=== PATIENT | female | born 1965 | race Caucasian/White ===

== ENCOUNTER 2016-10-25 18:50 | Emergency (ER) | payer MEDICAID ==
[2016-10-25 18:56] VITALS: BP 134/90
--- NOTE | 2016-10-25 19:26 | EDM.PDOC ---
ED HPI RENAL/ - General Chief Complaint: Genitourinary Problem Stated Complaint: UTI symptoms Time Seen by Provider: 10/25/16 19:08 Source of Information: Reports: Patient History Limitations: Reports: No limitations - History of Present Illness INITIAL COMMENTS - FREE TEXT/NARRATIVE: Burning, frequency of urination present for one week. Worsening. Some lower abdominal discomfort. No CVA pain. Denies fevers/chills/nausea/emesis/bowel changes. No hematuria. No UTI since around 2013. No other complaints. Taking old Pyridium at home for burning, not much help. - Related Data Allergies/ADRs: Allergies Allergy/AdvReac Type Severity Reaction Status Date / Time acetaminophen Allergy Dizziness Verified 10/25/16 18:57 [From Darvocet-N] coconut Allergy Cannot Verified 10/25/16 18:57 Remember codeine Allergy Nausea and Verified 10/25/16 18:57 Vomiting hydrocodone bitartrate Allergy Nausea Verified 10/25/16 18:57 [From Vicodin] oxycodone HCl [From Percocet] Allergy Dizziness Verified 10/25/16 18:57 propoxyphene napsylate Allergy Dizziness Verified 10/25/16 18:57 [From Darvocet-N] Sulfa (Sulfonamide Allergy Nausea and Verified 10/25/16 18:57 Antibiotics) Vomiting steriods Allergy Cannot Uncoded 10/25/16 18:57 Remember Home Meds: Home Meds Ibuprofen [Advil] 200 mg PO Q6H PRN 09/12/13 [History] Multivitamin [Multi-Vitamin Daily] 1 each PO DAILY 10/25/16 [History] Nitrofurantoin Monohyd/M-Cryst [Macrobid 100 mg Capsule] 100 mg PO Q12HR #10 capsule 10/25/16 [Rx] Phenazopyridine HCl [Pyridium] 100 mg PO ASDIRECTED PRN #20 tablet 10/25/16 [Rx] Past Medical History Genitourinary History: Reports: UTI, recurrent Social & Family History - Tobacco Use Smoking Status *Q: Current Every Day Smoker Years of Tobacco use: 30 Second Hand Smoke Exposure: Yes - Alcohol Use Days Per Week of Alcohol Use: 1 (Occasionally) - Recreational Drug Use Recreational Drug Use: No - Living Situation & Occupation Living situation: Reports: with significant other (Fianc) 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 ED EXAM, RENAL/ - Physical Exam Exam: See Below Exam Limited By: No limitations General Appearance: alert, WD/WN, no apparent distress Eye Exam: bilateral eye: EOMI, PERRL Head: atraumatic, normocephalic Neck: supple Respiratory/Chest: no respiratory distress GI/Abdominal: soft, no distention, tender (mild suprapubic tenderness with palpation). No: guarding, rigid, rebound Back Exam: No: CVA tenderness (L), CVA tenderness (R) Neurological: alert, oriented, normal cognition, normal gait Psychiatric: normal affect, normal mood Skin Exam: Warm, Dry, Intact, Normal color Course - Vital Signs Last Recorded V/S: Last Vital Signs Temp 36.6 C 10/25/16 18:53 Pulse 84 10/25/16 18:53 Resp 16 10/25/16 18:53 BP 134/90 10/25/16 18:53 Pulse Ox 100 10/25/16 18:53 - Orders/Labs/Meds Orders: Active Orders 24 hr Category Date Time Status CULTURE URINE [RM] Routine Lab 10/25/16 19:19 Uncollected CULTURE URINE [RM] Stat Lab 10/25/16 19:00 Received Labs: Laboratory Tests 10/25/16 Range/Units 19:00 Specimen Type Urincc Urine Color Yellow Urine Appearance Slightly cloudy Urine pH 6.0 (5.0-9.0) Ur Specific [place] <= 1.005 (1.005-1.030) Urine Protein Negative (NEGATIVE) mg/dL Urine Glucose (UA) 100 H (NEGATIVE) mg/dL Urine Ketones Negative (NEGATIVE) mg/dL Urine Occult Blood Moderate H (NEGATIVE) Urine Nitrite Negative (NEGATIVE) Urine Bilirubin Negative (NEGATIVE) Urine Urobilinogen 0.2 (0.2-1.0) E.U./dL Ur Leukocyte Esterase Moderate H (NEGATIVE) Urine RBC 0-5 /HPF Urine WBC >100 H /HPF Ur Epithelial Cells Few /LPF Urine Bacteria Moderate H (NONE TO FEW) /HPF - Re-Assessments/Exams Free Text/Narrative Re-Assessment/Exam: 10/25/16 19:28 +ua for UTI Rx with Macrobid. Sent home with Pyridium. Given dose of Macrobid prior to discharge. Departure - Departure Time of Disposition: 19:20 Disposition: Home, Self-Care 01 Condition: good Clinical Impression: UTI, Urinary tract infectious disease Prescriptions: Phenazopyridine HCl [Pyridium] 100 mg PO ASDIRECTED PRN #20 tablet PRN Reason: Dysuria Instructions: Urinary Tract Infection, Adult, [id number] Forms: ED Department Discharge Additional Instructions: Follow up as needed if symptoms do not improve within 1-2 days. Recommend follow up urine check next Sunday to make certain that infections has completely resolved. - My Orders Last 24 Hours: My Active Orders 10/25/16 19:00 CULTURE URINE [RM] Stat 10/25/16 19:19 CULTURE URINE [RM] Routine - Assessment/Plan Last 24 Hours: My Active Orders 10/25/16 19:00 CULTURE URINE [RM] Stat 10/25/16 19:19 CULTURE URINE [RM] Routine
[2016-10-25] MEDS ORDERED: Nitrofurantoin Monohydrate/Macrocrystalline 100 MG Cap PO ONE (19:29)
== END 2016-10-25 19:43 | disposition home or self-care (01) ==
LOC: LL.ED 18:50
DX: N39.0 Urinary tract infection, site not specified (principal); Z88.5 Allergy status to narcotic agent; Z88.2 Allergy status to sulfonamides; Z79.899 Other long term (current) drug therapy
CPT/HCPCS: 81001; 87086; 87088; 99283; A9270; 87186

== ENCOUNTER 2018-01-10 01:35 | Emergency (ER) | payer BC, MEDICAID ==
[2018-01-10 01:57] VITALS: BP 157/56
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
[2018-01-10] MEDS ORDERED: Nitrofurantoin Monohydrate/Macrocrystalline 100 MG Cap PO ONE (02:26)
== END 2018-01-10 02:55 | disposition home or self-care (01) ==
LOC: LL.ED 01:35
DX: N39.0 Urinary tract infection, site not specified (principal); K29.70 Gastritis, unspecified, without bleeding; F41.8 Other specified anxiety disorders; J43.1 Panlobular emphysema; F17.210 Nicotine dependence, cigarettes, uncomplicated; Z79.899 Other long term (current) drug therapy; Z88.8 Allergy status to other drugs, medicaments and biological substances; Z88.5 Allergy status to narcotic agent; Z71.6 Tobacco abuse counseling
CPT/HCPCS: 81001; 87086; 87088; 87186; 99283; A9270-GY

== ENCOUNTER 2019-10-13 20:38 | Emergency (ER) | payer BC ==
[2019-10-13 20:57] VITALS: BP 174/90; PULSE 86
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
== END 2019-10-13 21:40 | disposition home or self-care (01) ==
LOC: LL.ED 20:38
DX: N39.0 Urinary tract infection, site not specified (principal); Z91.018 Allergy to other foods; Z88.5 Allergy status to narcotic agent; Z88.8 Allergy status to other drugs, medicaments and biological substances; Z88.2 Allergy status to sulfonamides; J44.9 Chronic obstructive pulmonary disease, unspecified; M41.9 Scoliosis, unspecified
CPT/HCPCS: 81001; 87086; 87088; 87186; 99283

== ENCOUNTER 2019-12-16 00:50 | Emergency (ER) | payer BC ==
[2019-12-16] MEDS ORDERED: Heparin Sodium/0.45% NaCl 500 ML IV ONE (00:51)
[2019-12-16] MEDS ORDERED: Sodium Chloride 0.9% 10 ML Syringe FLUSH PRN (01:04)
[2019-12-16] MEDS ORDERED: Aspirin 81 MG Tab.Chew PO ONE ×2 (01:12)
[2019-12-16 01:40] LABS: PTT,PARTIAL THROMBOPLSTIN TIME 25.1 SEC (24.5-32.8)
[2019-12-16 01:41] LABS: CHLORIDE,CL 107 mmol/L (98-107); SODIUM,NA 143 mmol/L (136-145)
[2019-12-16] MEDS ORDERED: Ticagrelor 90 MG Tab PO ONE (01:58)
[2019-12-16 02:05] VITALS: BP 127/95; PULSE 79
[2019-12-16] MEDS ORDERED: Nicotine 21 MG/24 Hr Patch TRDERM ONE (02:07)
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
[2019-12-16] MEDS ORDERED: Heparin Sodium 5,000 Units/ML Vial ONE ×2 (02:11→02:15)
[2019-12-16] MEDS ORDERED: Heparin Sodium/0.45% NaCl 500 ML ONE (02:11)
[2019-12-16] MEDS ORDERED: Heparin Sodium/0.45% NaCl 500 ML IV SCH ×2 (02:15)
== END 2019-12-16 02:22 ==
LOC: LL.ED 00:50
DX: R07.9 Chest pain, unspecified (principal); R79.89 Other specified abnormal findings of blood chemistry; R79.1 Abnormal coagulation profile; F17.210 Nicotine dependence, cigarettes, uncomplicated; Z88.6 Allergy status to analgesic agent; Z88.5 Allergy status to narcotic agent; Z88.8 Allergy status to other drugs, medicaments and biological substances; Z88.2 Allergy status to sulfonamides; Z91.018 Allergy to other foods
CPT/HCPCS: 36415; 71046; 80053; 81001; 82550; 82553; 83605; 83735; 83880; 84443; 84484; 85025; 85379; 85610; 85730; 87086; 93005; 99285-25; A9270-GY; J1644

== ENCOUNTER 2020-01-28 02:28 | Observation (INO) | payer BC ==
[2020-01-28] MEDS ORDERED: Nitroglycerin 0.4 MG Tab.SL SL ONE (02:58)
[2020-01-28 03:05] LABS: PTT,PARTIAL THROMBOPLSTIN TIME 26.3 SEC (24.5-32.8)
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
[2020-01-28 03:17] LABS: CHLORIDE,CL 108 mmol/L (98-107); SODIUM,NA 141 mmol/L (136-145)
[2020-01-28] MEDS ORDERED: Ondansetron 4 MG/2 ML SDV IVPUSH PRN (04:05)
[2020-01-28] MEDS ORDERED: Nitroglycerin 0.4 MG Tab.SL SL PRN (04:08)
[2020-01-28] MEDS ORDERED: Acetaminophen 500 MG Tab PO PRN (04:11)
[2020-01-28] MEDS: Nicotine 21 MG/24 Hr Patch TRDERM SCH ×2 (04:35→09:06)
[2020-01-28] MEDS ORDERED: Pantoprazole 40 MG Vial IVPUSH ONE (09:00)
[2020-01-28] MEDS: Carvedilol 6.25 MG Tab PO SCH ×2 (09:04→17:50)
[2020-01-28] MEDS: Lisinopril 5 MG Tab PO SCH (09:05)
[2020-01-28] MEDS: Apixaban 5 MG Tab PO SCH ×2 (09:05→17:52)
[2020-01-28] MEDS: Sodium Chloride 0.9% 10 ML Syringe FLUSH PRN (09:12)
[2020-01-28] MEDS: atorvaSTATin 40 MG Tab PO SCH (09:44)
[2020-01-28] MEDS ORDERED: atorvaSTATin 40 MG Tab PO SCH (20:00)
[2020-01-29] MEDS: Carvedilol 6.25 MG Tab PO SCH (07:34)
[2020-01-29] MEDS: Lisinopril 5 MG Tab PO SCH (07:34)
[2020-01-29] MEDS: Sodium Chloride 0.9% 10 ML Syringe FLUSH PRN (07:35)
[2020-01-29] MEDS: atorvaSTATin 40 MG Tab PO SCH (07:35)
[2020-01-29] MEDS: Nicotine 21 MG/24 Hr Patch TRDERM SCH (07:35)
[2020-01-29] MEDS: Apixaban 5 MG Tab PO SCH (07:35)
[2020-01-29 07:36] VITALS: BP 138/94; PULSE 62
[2020-01-29 07:47] LABS: CHLORIDE,CL 107 mmol/L (98-107); SODIUM,NA 142 mmol/L (136-145)
--- NOTE | 2020-01-29 09:28 | PCM.DCSUM1 ---
Discharge Summary - Hospital Course HPI Initial Comments: See emergency room note/admission H&P Brief History: See emergency room note/admission H&P Diagnosis: Stroke: No Modified Dixie Scale: No Symptoms at All Modified Dixie Scale Score: 0 - Discharge Data Discharge Date: 01/29/20 Discharge Disposition: Home, Self-Care 01 Condition: Good - Referral to Home Health Primary Care Physician: Marce Sanchez PA-C - Discharge Diagnosis/Problem(s) (1) Chest pain SNOMED Code(s): 70779197 ICD Code: R07.9 - CHEST PAIN, UNSPECIFIED Status: Acute Priority: High Current Visit: Yes Onset Date: 01/28/20 Problem Details: Negative workup for acute ND. Note that [facility] EMR was reviewed by me today concerning recent possible ND on 12/16/19 with negative workup in that facility. Heart catheterization on 12/16/19 was completely normal with exception of decreased ejection fraction of 30% with echocardiogram on 12/16/19 indicating normal findings with exception of moderate apical ballooning consistent with Takatsubo syndrome with small localized apical thrombus with ejection fraction of 45% by that evaluation. Patient was placed on Eliquis at that time secondary to the thrombus and her above cardiomyopathy with follow-up appointment already scheduled with her associate veterinarian on 02/16/20 per their records. Note her previous d-dimer elevation secondary to the above small thrombus has since normalized with previous negative CTA of the chest for PE and negative venous Doppler studies of the lower extremities for DVT, which were both conducted at on 12/16/19. [place] work excuse was provided with the patient feeling that she can perform her normal duties. Qualifiers: Chest pain type: unspecified Qualified Code(s): R07.9 - Chest pain, unspecified (2) Cardiomyopathy SNOMED Code(s): 08716365 ICD Code: I42.9 - CARDIOMYOPATHY, UNSPECIFIED Status: Chronic Priority: High Current Visit: Yes Onset Date: 12/16/19 Problem Details: As above Qualifiers: Cardiomyopathy type: other Qualified Code(s): I42.8 - Other cardiomyopathies (3) Peptic reflux disease SNOMED Code(s): 747070958 ICD Code: K21.9 - GASTRO-ESOPHAGEAL REFLUX DISEASE WITHOUT ESOPHAGITIS Status: Chronic Priority: Medium Current Visit: Yes Problem Details: Her current symptoms may be related to her peptic ulcer disease, although this has improved since recent initiation of Prilosec by her history. Further GI workup depending on her clinical course, including possible EGD, additional screening colonoscopy, if this has not already been conducted, etc. (4) Hypertension SNOMED Code(s): 25544954 ICD Code: I10 - ESSENTIAL (PRIMARY) HYPERTENSION Status: Chronic Priority: Medium Current Visit: Yes Problem Details: Elevated diastolic blood pressures during this hospitalization. Continue to observe closely by her regular providers. No medication changes for now. Qualifiers: Hypertension type: essential hypertension Qualified Code(s): I10 - Essential (primary) hypertension (5) COPD (chronic obstructive pulmonary disease) SNOMED Code(s): 04260295 ICD Code: J44.9 - CHRONIC OBSTRUCTIVE PULMONARY DISEASE, UNSPECIFIED Status: Chronic Priority: Medium Current Visit: Yes Problem Details: COPD by previous chest x-ray. No current fever or bronchitic type symptoms. No current medical therapy. Tobacco cessation strongly encouraged as below. PFTs also recommended. Qualifiers: COPD type: emphysema Emphysema type: panlobular Qualified Code(s): J43.1 - Panlobular emphysema (6) Hyperlipidemia SNOMED Code(s): 85394561 ICD Code: E78.5 - HYPERLIPIDEMIA, UNSPECIFIED Status: Chronic Priority: Medium Current Visit: Yes Problem Details: Currently under therapy. Weight loss in moderation. Continue to observe closely by her regular providers. Qualifiers: Hyperlipidemia type: unspecified Qualified Code(s): E78.5 - Hyperlipidemia, unspecified (7) Mixed anxiety depressive disorder SNOMED Code(s): 645410235 ICD Code: F41.8 - OTHER SPECIFIED ANXIETY DISORDERS Status: Chronic Priority: Medium Current Visit: Yes Problem Details: Stable by history. (8) Tobacco abuse counseling SNOMED Code(s): 427053996, 790527379, 302621154 ICD Code: Z71.6 - TOBACCO ABUSE COUNSELING Status: Chronic Priority: Medium Current Visit: No Problem Details: Patient actively trying to cut down cigarette use since [facility] admission 12/16/19. Nicoderm patch use during this hospitalization. The patient was congratulated about trying to quit smoking with tobacco cessation information provided. (9) D-dimer, elevated SNOMED Code(s): 246533663 ICD Code: R79.89 - OTHER SPECIFIED ABNORMAL FINDINGS OF BLOOD CHEMISTRY Status: Acute Priority: Medium Current Visit: Yes Onset Date: 12/16/19 Problem Details: As above. D-dimer normal during this hospitalization. Continue current Eliquis therapy. - Patient Summary/Data Operative Procedure(s) Performed: None Complications: None Consults: None Labs Pending at D/C: None Recommended Follow-up Testing/Procedures: As per discharge instructions Planned Operative Procedure(s) after DC: None Hospital Course: The patient was placed in observation status with negative workup for acute ND as above. Note previous extensive cardiac workup at [facility] on 12/16/19 as above with these records reviewed by me today. Patient is completely symptom-free at time of discharge and during this hospitalization with continued close follow-up with the cardiology department at [facility] with no further medication. - Patient Instructions Diet: Heart Healthy Diet Activity: As Tolerated Driving: May Drive Today Showering/Bathing: May Shower Notify Provider of: Fever, Increased Pain, Nausea and/or Vomiting Other/Special Instructions: 1. Follow up with your regular provider in 10-14 days as needed, if symptoms persist. Bring these discharge instructions with you to that visit.. 2. Otherwise follow-up with your associate veterinarian as already scheduled on 02/16/20, including repeat echocardiogram, etc. 3. Work excuse- See Form. 4. Congratulations about trying to quit smoking. Stop all tobacco use LAURIE as directed/per provided information and consider contacting [employer], etc.. 5. Immediately after this visit verify that your cellular telephone's voicemail has been activated and is empty. Also verify that your home telephone's answering machine is operating properly and has space to receive messages. Note that it is sometimes necessary for us to be able to contact you at a later date to discuss your medical care. 6. Please remember that we are ALWAYS here for you and want to answer any questions you may have. Feel free to call the hospital any time and we call you back LAURIE. 7. Some evidence of beginning emphysema/COPD by chest x-ray. Stop smoking LAURIE as above. Consider lung function test by your regular provider. 8. Your lower blood pressure number was somewhat elevated, i.e., diastolic blood pressure. Continue current medical therapy for now with close follow-up by your regular provider, associate veterinarian, etc. SYMPTOMS TO LOOK OUT FOR: You have been hospitalized for your heart disease and should look out for the following symptoms after discharge: 1. Make absolutely certain that you completely understand the reasons you are taking any of your new and/or old medications and/or supplements as discussed with you by the nurse at time of discharge. This includes possible side effects versus interactions between your medications and/or supplements. Don't be afraid to take extra time to ask any questions or express any concerns, because that is what we are here for. It is very important to us that you und erstand your care. 2. Notify this facility, telephone number [phone], and/or your regular provider LAURIE if you experience any of the following symptoms: a. Sudden chest pressure or pain especially with radiation to the neck, jaws, arms, mid back, etc. especially if these are associated with nausea, cold sweats, dizziness, racing heart, weakness, near fainting, etc. b. Any shortness of breath or decreased exercise tolerance that has changed since your hospital discharge and is not normal for you. c. Any persistent heartburn type symptoms that is not normal for you and is not relieved by any of your discharge medications or supplements. d. Any progressive weight gain especially more than 5 pounds of weight gain prior to your scheduled appointment with your regular provider. e. Any racing heart, dizziness, etc. not associated with the other symptoms as above. f. Any persistent fever equal to or greater than 100.5 degrees, which does not respond to recommended doses of Tylenol, ibuprofen, Aleve, or other previously prescribed fever medications - Discharge Plan *PRESCRIPTION DRUG MONITORING PROGRAM REVIEWED*: Not Applicable *COPY OF PRESCRIPTION DRUG MONITORING REPORT IN PATIENT KATIANA: Not Applicable Home Medications: Home Meds Multivitamin [Multi-Vitamin Daily] 1 each PO DAILY 10/25/16 [History] Acetaminophen [Non-Aspirin Extra Strength] 1,000 mg PO Q6H PRN 01/10/18 [History] Apixaban [Eliquis] 5 mg PO BID 01/28/20 [History] Omeprazole Magnesium [Prilosec Otc] 20 mg PO DAILY 01/28/20 [History] atorvaSTATin [Lipitor] 40 mg PO BEDTIME 01/28/20 [History] carvediloL [Carvedilol] 3.125 mg PO BID 01/28/20 [History] lisinopriL [Lisinopril] 2.5 mg PO DAILY 01/28/20 [History] Oxygen Therapy Mode: Room Air Patient Handouts: Health Risks of Smoking, Steps to Quit Smoking, [id number], Chronic Obstructive Pulmonary Disease, [id number], Cardiomyopathy, Adult, Hypertension, Adult, [id number], Gastroesophageal Reflux Disease, Adult, [id number] Forms: ED Department Discharge Referrals: Marce Sanchez PA-C [Primary Care Provider] - - Discharge Summary/Plan Comment DC Time >30 min.: Yes (Coordination of care ) Discharge Summary/Plan Comment: As above. Extensive precautions were given to the patient, who is in agreement with the treatment plan. See Patient Instructions for further treatment and plan. - General Info Date of Service: 01/29/20 Admission Dx/Problem (Free Text: Chest pain Functional Status: Reports: Pain Controlled, Tolerating Diet, Ambulating. Denies: New Symptoms, Incentive Spirometry Numeric/FACES Score: 0 - Review of Systems General: Reports: No Symptoms. Denies: Fever, Weakness, Fatigue, Malaise, Chills, Night Sweats, Appetite HEENT: Reports: No Symptoms. Denies: Dysphasia, Ear Pain, Eye Pain, Headaches, Post Nasal Drip, Sinus Congestion, Sore Throat, Visual Changes Pulmonary: Reports: No Symptoms. Denies: Shortness of Breath, Pleuritic Chest Pain, Cough, Sputum, Hemoptysis, Wheezing Cardiovascular: Reports: Edema (Stable dependent). Denies: Chest Pain, Palpitations, Dyspnea on Exertion, Orthopnea, PND, Lightheadedness Gastrointestinal: Reports: Constipation (Stable by history), Other (No bowel movement since this hospitalization). Denies: Abdominal Pain, Decreased Appetite, Diarrhea, Difficulty Swallowing, Flatus, Hematochezia, Melena, Nausea, Vomiting Genitourinary: Reports: No Symptoms. Denies: Dysuria, Frequency, Burning, Pain, Urgency, Incontinence, Hematuria, Retention, Flank Pain, Other Musculoskeletal: Reports: No Symptoms. Denies: Neck Pain, Shoulder Pain, Arm Pain, Back Pain, Leg Pain Skin: Reports: No Symptoms. Denies: Diaphoresis, Bruising, Pruritis Neurological: Reports: No Symptoms. Denies: Confusion, Dizziness, Headache, Numbness, Paresthesia, Tingling, Weakness Psychiatric: Reports: No Symptoms. Denies: Confusion, Depression, Anxiety, Agitation, Cravings, Hallucinations - Patient Data Vitals - Most Recent: Last Vital Signs Temp 37.0 C 01/29/20 07:30 Pulse 62 01/29/20 07:34 Resp 16 01/29/20 07:30 BP 138/94 H 01/29/20 07:34 Pulse Ox 95 01/29/20 07:30 Vital Signs - 24 hr 01/28/20 01/28/20 01/29/20 17:50 17:53 00:00 Temperature [ 36.6 C 37.1 C Temporal] Pulse, 70 Peripheral Pulse, 70 64 Peripheral [ Pulse Oximetry] Respiratory 16 16 Rate Blood Pressure 120/73 Blood Pressure 120/73 [Left Upper Arm ] Blood Pressure 115/74 [Right Upper Arm] O2 Sat by Pulse 94 L 95 Oximetry 01/29/20 01/29/20 01/29/20 06:00 07:30 07:34 Temperature [ 36.8 C 37.0 C Temporal] Pulse, 62 Peripheral Pulse, 64 62 Peripheral [ Pulse Oximetry] Respiratory 16 16 Rate Blood Pressure 138/94 H Blood Pressure 138/94 H [Left Upper Arm ] Blood Pressure 131/80 [Right Upper Arm] O2 Sat by Pulse 95 95 Oximetry Weight - Most Recent: 86.364 kg I&O - Last 24 hours: Intake & Output 01/28/20 01/29/20 01/29/20 22:59 06:59 14:59 Intake Total 120 300 600 Balance 120 300 600 Imaging Impressions - Last 24 hrs: gambling monitor showed normal sinus rhythm with heart rate in the 60s to 70s with no ectopy or arrhythmia Lab Results - Last 24 hrs: Laboratory Results - last 24 hr 01/28/20 01/28/20 01/29/20 Range/Units 09:05 16:35 07:15 WBC (4.0-10.2) K/uL RBC (3.77-5.09) M/uL Hgb (11.7-15.5) g/dL Hct (34.0-46.0) % MCV (84.0-98.0) fL MCH (28.2-33.3) pg MCHC (31.7-36.0) g/dL RDW (11.2-14.1) % Plt Count (150-350) K/uL Neut % (Auto) (45.0-80.0) % Lymph % (Auto) (10.0-50.0) % [place] % (Auto) (2.0-14.0) % Eos % (Auto) (0.0-5.0) % Baso % (Auto) (0.0-2.0) % Neut # (Auto) (1.40-7.00) K/uL Lymph # (Auto) (0.50-3.50) K/uL [place] # (Auto) (0.00-1.00) K/uL Eos # (Auto) (0.00-0.50) K/uL Baso # (Auto) (0.00-0.20) K/uL Sodium 142 (136-145) mmol/L Potassium 3.9 (3.5-5.1) mmol/L Chloride 107 (98-107) mmol/L Carbon Dioxide 28.2 (21.0-32.0) mmol/L BUN 21 H (7-18) mg/dL Creatinine 0.71 (0.51-1.17) mg/dL Est Cr Clr Drug Dosing 87.56 mL/min Estimated GFR (MDRD) > 60 mL/min Glucose 87 (74-106) mg/dL Calcium 8.8 (8.5-10.1) mg/dL Creatine Kinase (26-308) U/L Creatine Kinase Index (0.0-2.5) % CK-MB (CK-2) (0.00-3.60) ng/mL Troponin I 0.000 0.000 0.000 (0.000-0.056) ng/mL 01/29/20 01/29/20 Range/Units 07:15 07:15 WBC 4.8 (4.0-10.2) K/uL RBC 4.22 (3.77-5.09) M/uL Hgb 13.0 (11.7-15.5) g/dL Hct 39.4 (34.0-46.0) % MCV 93.4 (84.0-98.0) fL MCH 30.8 (28.2-33.3) pg MCHC 33.0 (31.7-36.0) g/dL RDW 13.0 (11.2-14.1) % Plt Count 181 (150-350) K/uL Neut % (Auto) 55.7 (45.0-80.0) % Lymph % (Auto) 30.9 (10.0-50.0) % [place] % (Auto) 10.7 (2.0-14.0) % Eos % (Auto) 2.5 (0.0-5.0) % Baso % (Auto) 0.2 (0.0-2.0) % Neut # (Auto) 2.64 (1.40-7.00) K/uL Lymph # (Auto) 1.47 (0.50-3.50) K/uL [place] # (Auto) 0.51 (0.00-1.00) K/uL Eos # (Auto) 0.12 (0.00-0.50) K/uL Baso # (Auto) 0.01 (0.00-0.20) K/uL Sodium (136-145) mmol/L Potassium (3.5-5.1) mmol/L Chloride (98-107) mmol/L Carbon Dioxide (21.0-32.0) mmol/L BUN (7-18) mg/dL Creatinine (0.51-1.17) mg/dL Est Cr Clr Drug Dosing mL/min Estimated GFR (MDRD) mL/min Glucose (74-106) mg/dL Calcium (8.5-10.1) mg/dL Creatine Kinase 51 (26-308) U/L Creatine Kinase Index 1.8 (0.0-2.5) % CK-MB (CK-2) 0.90 (0.00-3.60) ng/mL Troponin I (0.000-0.056) ng/mL Laboratory Tests 01/28/20 01/28/20 01/28/20 Range/Units 02:45 02:45 02:45 WBC 5.9 (4.0-10.2) K/uL RBC 4.03 (3.77-5.09) M/uL Hgb 12.3 (11.7-15.5) g/dL Hct 37.3 (34.0-46.0) % MCV 92.6 (84.0-98.0) fL MCH 30.5 (28.2-33.3) pg MCHC 33.0 (31.7-36.0) g/dL RDW 12.9 (11.2-14.1) % Plt Count 160 (150-350) K/uL Neut % (Auto) 64.0 (45.0-80.0) % Lymph % (Auto) 24.3 (10.0-50.0) % [place] % (Auto) 8.9 (2.0-14.0) % Eos % (Auto) 2.6 (0.0-5.0) % Baso % (Auto) 0.2 (0.0-2.0) % Neut # (Auto) 3.75 (1.40-7.00) K/uL Lymph # (Auto) 1.42 (0.50-3.50) K/uL [place] # (Auto) 0.52 (0.00-1.00) K/uL Eos # (Auto) 0.15 (0.00-0.50) K/uL Baso # (Auto) 0.01 (0.00-0.20) K/uL PT 10.6 (9.5-12.0) SEC INR 1.1 APTT 26.3 (24.5-32.8) SEC D-Dimer, Quantitative (0-400) ng/mL Sodium 141 (136-145) mmol/L Potassium 3.6 (3.5-5.1) mmol/L Chloride 108 H (98-107) mmol/L Carbon Dioxide 26.2 (21.0-32.0) mmol/L BUN 30 H (7-18) mg/dL Creatinine 0.71 (0.51-1.17) mg/dL Est Cr Clr Drug Dosing 87.45 mL/min Estimated GFR (MDRD) > 60 mL/min Glucose 121 H (74-106) mg/dL Lactic Acid (0.4-2.0) mmol/L Calcium 8.6 (8.5-10.1) mg/dL Magnesium 1.9 (1.8-2.4) mg/dL Total Bilirubin 0.3 (0.2-1.0) mg/dL AST 16 (15-37) U/L ALT 25 (12-78) U/L Alkaline Phosphatase 93 (46-116) IU/L Creatine Kinase 100 (26-308) U/L Creatine Kinase Index 1.8 (0.0-2.5) % CK-MB (CK-2) 1.80 (0.00-3.60) ng/mL Troponin I 0.000 (0.000-0.056) ng/mL NT-Pro-B Natriuret Pep 123 (0-125) pg/mL Total Protein 6.5 (6.4-8.2) g/dL Albumin 3.6 (3.4-5.0) g/dL TSH, Ultra Sensitive 1.033 (0.358-3.740) mIU/mL 01/28/20 01/28/20 01/28/20 Range/Units 02:45 02:45 09:05 WBC (4.0-10.2) K/uL RBC (3.77-5.09) M/uL Hgb (11.7-15.5) g/dL Hct (34.0-46.0) % MCV (84.0-98.0) fL MCH (28.2-33.3) pg MCHC (31.7-36.0) g/dL RDW (11.2-14.1) % Plt Count (150-350) K/uL Neut % (Auto) (45.0-80.0) % Lymph % (Auto) (10.0-50.0) % [place] % (Auto) (2.0-14.0) % Eos % (Auto) (0.0-5.0) % Baso % (Auto) (0.0-2.0) % Neut # (Auto) (1.40-7.00) K/uL Lymph # (Auto) (0.50-3.50) K/uL [place] # (Auto) (0.00-1.00) K/uL Eos # (Auto) (0.00-0.50) K/uL Baso # (Auto) (0.00-0.20) K/uL PT (9.5-12.0) SEC INR APTT (24.5-32.8) SEC D-Dimer, Quantitative < 100 (0-400) ng/mL Sodium (136-145) mmol/L Potassium (3.5-5.1) mmol/L Chloride (98-107) mmol/L Carbon Dioxide (21.0-32.0) mmol/L BUN (7-18) mg/dL Creatinine (0.51-1.17) mg/dL Est Cr Clr Drug Dosing mL/min Estimated GFR (MDRD) mL/min Glucose (74-106) mg/dL Lactic Acid 1.5 (0.4-2.0) mmol/L Calcium (8.5-10.1) mg/dL Magnesium (1.8-2.4) mg/dL Total Bilirubin (0.2-1.0) mg/dL AST (15-37) U/L ALT (12-78) U/L Alkaline Phosphatase (46-116) IU/L Creatine Kinase (26-308) U/L Creatine Kinase Index (0.0-2.5) % CK-MB (CK-2) (0.00-3.60) ng/mL Troponin I 0.000 (0.000-0.056) ng/mL NT-Pro-B Natriuret Pep (0-125) pg/mL Total Protein (6.4-8.2) g/dL Albumin (3.4-5.0) g/dL TSH, Ultra Sensitive (0.358-3.740) mIU/mL 01/28/20 01/29/20 01/29/20 Range/Units 16:35 07:15 07:15 WBC 4.8 (4.0-10.2) K/uL RBC 4.22 (3.77-5.09) M/uL Hgb 13.0 (11.7-15.5) g/dL Hct 39.4 (34.0-46.0) % MCV 93.4 (84.0-98.0) fL MCH 30.8 (28.2-33.3) pg MCHC 33.0 (31.7-36.0) g/dL RDW 13.0 (11.2-14.1) % Plt Count 181 (150-350) K/uL Neut % (Auto) 55.7 (45.0-80.0) % Lymph % (Auto) 30.9 (10.0-50.0) % [place] % (Auto) 10.7 (2.0-14.0) % Eos % (Auto) 2.5 (0.0-5.0) % Baso % (Auto) 0.2 (0.0-2.0) % Neut # (Auto) 2.64 (1.40-7.00) K/uL Lymph # (Auto) 1.47 (0.50-3.50) K/uL [place] # (Auto) 0.51 (0.00-1.00) K/uL Eos # (Auto) 0.12 (0.00-0.50) K/uL Baso # (Auto) 0.01 (0.00-0.20) K/uL PT (9.5-12.0) SEC INR APTT (24.5-32.8) SEC D-Dimer, Quantitative (0-400) ng/mL Sodium 142 (136-145) mmol/L Potassium 3.9 (3.5-5.1) mmol/L Chloride 107 (98-107) mmol/L Carbon Dioxide 28.2 (21.0-32.0) mmol/L BUN 21 H (7-18) mg/dL Creatinine 0.71 (0.51-1.17) mg/dL Est Cr Clr Drug Dosing 87.56 mL/min Estimated GFR (MDRD) > 60 mL/min Glucose 87 (74-106) mg/dL Lactic Acid (0.4-2.0) mmol/L Calcium 8.8 (8.5-10.1) mg/dL Magnesium (1.8-2.4) mg/dL Total Bilirubin (0.2-1.0) mg/dL AST (15-37) U/L ALT (12-78) U/L Alkaline Phosphatase (46-116) IU/L Creatine Kinase (26-308) U/L Creatine Kinase Index (0.0-2.5) % CK-MB (CK-2) (0.00-3.60) ng/mL Troponin I 0.000 0.000 (0.000-0.056) ng/mL NT-Pro-B Natriuret Pep (0-125) pg/mL Total Protein (6.4-8.2) g/dL Albumin (3.4-5.0) g/dL TSH, Ultra Sensitive (0.358-3.740) mIU/mL 01/29/20 Range/Units 07:15 WBC (4.0-10.2) K/uL RBC (3.77-5.09) M/uL Hgb (11.7-15.5) g/dL Hct (34.0-46.0) % MCV (84.0-98.0) fL MCH (28.2-33.3) pg MCHC (31.7-36.0) g/dL RDW (11.2-14.1) % Plt Count (150-350) K/uL Neut % (Auto) (45.0-80.0) % Lymph % (Auto) (10.0-50.0) % [place] % (Auto) (2.0-14.0) % Eos % (Auto) (0.0-5.0) % Baso % (Auto) (0.0-2.0) % Neut # (Auto) (1.40-7.00) K/uL Lymph # (Auto) (0.50-3.50) K/uL [place] # (Auto) (0.00-1.00) K/uL Eos # (Auto) (0.00-0.50) K/uL Baso # (Auto) (0.00-0.20) K/uL PT (9.5-12.0) SEC INR APTT (24.5-32.8) SEC D-Dimer, Quantitative (0-400) ng/mL Sodium (136-145) mmol/L Potassium (3.5-5.1) mmol/L Chloride (98-107) mmol/L Carbon Dioxide (21.0-32.0) mmol/L BUN (7-18) mg/dL Creatinine (0.51-1.17) mg/dL Est Cr Clr Drug Dosing mL/min Estimated GFR (MDRD) mL/min Glucose (74-106) mg/dL Lactic Acid (0.4-2.0) mmol/L Calcium (8.5-10.1) mg/dL Magnesium (1.8-2.4) mg/dL Total Bilirubin (0.2-1.0) mg/dL AST (15-37) U/L ALT (12-78) U/L Alkaline Phosphatase (46-116) IU/L Creatine Kinase 51 (26-308) U/L Creatine Kinase Index 1.8 (0.0-2.5) % CK-MB (CK-2) 0.90 (0.00-3.60) ng/mL Troponin I (0.000-0.056) ng/mL NT-Pro-B Natriuret Pep (0-125) pg/mL Total Protein (6.4-8.2) g/dL Albumin (3.4-5.0) g/dL TSH, Ultra Sensitive (0.358-3.740) mIU/mL UVALDO Results - Last 24 hrs: None Med Orders - Current: Current Medications Acetaminophen (Tylenol Extra Strength) 1,000 mg PO Q6H PRN PRN Reason: Pain Apixaban (Eliquis) 5 mg PO BID [facility] Last Admin: 01/29/20 07:35 Dose: 5 mg Documented by: Atorvastatin Calcium (Lipitor) 40 mg PO DAILY [facility] Last Admin: 01/29/20 07:35 Dose: 40 mg Documented by: Carvedilol (Coreg) 3.125 mg PO BID [facility] Last Admin: 01/29/20 07:34 Dose: 3.125 mg Documented by: Lisinopril (Prinivil) 2.5 mg PO DAILY [facility] Last Admin: 01/29/20 07:34 Dose: 2.5 mg Documented by: Nicotine (Habitrol) 21 mg TRDERM DAILY [facility] Last Admin: 01/29/20 07:35 Dose: Not Given Documented by: Nitroglycerin (Nitrostat) 0.4 mg SL Q5M PRN PRN Reason: Chest Pain Ondansetron HCl (Zofran) 4 mg IVPUSH Q6H PRN PRN Reason: Nausea/Vomiting Sodium Chloride (Saline Flush) 10 ml FLUSH ASDIRECTED PRN PRN Reason: Keep Vein Open Last Admin: 01/29/20 07:35 Dose: 10 ml Documented by: Discontinued Medications Atorvastatin Calcium (Lipitor) 40 mg PO BEDTIME [facility] Nitroglycerin (Nitrostat) 0.4 mg SL ONETIME ONE Stop: 01/28/20 02:59 Last Admin: 01/28/20 03:03 Dose: 0.4 mg Documented by: Pantoprazole Sodium (Protonix Iv) 40 mg IVPUSH ONETIME ONE Stop: 01/28/20 09:01 Last Admin: 01/28/20 09:12 Dose: 40 mg Documented by: - Exam Quality Assessment: Reports: DVT Prophylaxis (Eliquis). Denies: Supplemental Oxygen, Central Line/PICC, Urine Catheter, Skin Breakdown, Restraints General: Reports: Alert, Oriented, Cooperative, No Acute Distress HEENT: Reports: Pupils Equal, Pupils Reactive, EOMI, Mucous Membr. Moist/[place]. Denies: Scleral Icterus Neck: Reports: Supple, Trachea Midline, No JVD, No Thyromegaly, +2 Carotid Pulse wo Bruit. Denies: Lymphadenopathy Lungs: Reports: Clear to Auscultation, Normal Respiratory Effort. Denies: Rub Cardiovascular: Reports: Regular Rate, Regular Rhythm, No Murmurs. Denies: G allops, Rubs GI/Abdominal Exam: Normal Bowel Sounds, Soft, Non-Tender, No Organomegaly, No Distention, No Abnormal Bruit, No Mass, Other (Obese). No: Guarding (Female) Exam: Deferred Rectal (Female) Exam: Deferred Back Exam: Reports: Normal Inspection, Full Range of Motion. Denies: CVA Tenderness (L), CVA Tenderness (R), Muscle Spasm Extremities: Normal Range of Motion, Non-Tender, Normal Capillary Refill, Pedal Edema (Stable trace to +1 bilateral pedal/pretibial edema). No: Dean's Sign Skin: Reports: Warm, Dry, Intact. Denies: Ecchymosis Neurological: Reports: No New Focal Deficit Psy/Mental Status: Reports: Alert, Normal Affect, Normal Mood. Denies: Agitated, Hallucinations, Withdrawal Symptoms EKG INTERPRETATION EKG Date: 01/29/20 Time: 06:58 Rhythm: NSR Rate (Beats/Min): 62 [place]: Normal (Neutral) P-Wave: Present (Mild diffuse biphasic P waves of borderline pulmonary hypertension by EKG) QRS: Normal (0.90 seconds) ST-T: Other (Stable diffuse T-wave inversions in leads 13, aVF, and V2 through V6 both from 01/28/20 and 12/16/19.) QT: Normal VT/PQ Interval: 0.15 seconds Comparison: No Change (As above) EKG Interpretation Comments: 1. No acute ischemic changes with stable diffuse T-wave inversions secondary to cardiomyopathy 2. Borderline pulmonary hypertension by EKG
== END 2020-01-29 10:43 | disposition home or self-care (01) ==
LOC: LL.ED 02:28 → LL.MS 03:57 → UNDOADMOB 03:57 → LL.MS 04:05
PROVIDERS: ADMIT Emergency Medicine; ATTEND Emergency Medicine
DX: R07.9 Chest pain, unspecified (principal); K21.9 Gastro-esophageal reflux disease without esophagitis; F17.210 Nicotine dependence, cigarettes, uncomplicated; E78.5 Hyperlipidemia, unspecified; I42.8 Other cardiomyopathies; F41.8 Other specified anxiety disorders; R79.89 Other specified abnormal findings of blood chemistry; J43.1 Panlobular emphysema; Z88.6 Allergy status to analgesic agent; Z87.19 Personal history of other diseases of the digestive system; Z88.5 Allergy status to narcotic agent; Z88.2 Allergy status to sulfonamides; Z79.899 Other long term (current) drug therapy; Z71.6 Tobacco abuse counseling
CPT/HCPCS: 36415; 71046; 80048; 80053; 82550; 82553; 83605; 83735; 83880; 84443; 84484; 85025; 85379; 85610; 85730; 93005; 93010; 96374; 99217; 99219; 99285-25; A9270-GY; C9113; G0378

== ENCOUNTER 2020-10-14 00:30 | Emergency (ER) | payer BC ==
[2020-10-14] MEDS ORDERED: Sodium Chloride 0.9% 10 ML Syringe FLUSH PRN (00:38)
[2020-10-14] MEDS ORDERED: Aspirin 81 MG Tab.Chew CHEW ONE (00:38)
[2020-10-14] MEDS ORDERED: Ticagrelor 90 MG Tab PO ONE (00:38)
[2020-10-14] MEDS ORDERED: Famotidine 20 MG/2 ML SDV IVPUSH ONE (00:38)
--- NOTE | 2020-10-14 00:38 | EDM.PDOC ---
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 pain (2) D-dimer, elevated SNOMED Code(s): 450991484 Code(s): R79.89 - OTHER SPECIFIED ABNORMAL FINDINGS OF BLOOD CHEMISTRY Status: Acute Priority: Medium Current Visit: Yes Onset Date: 12/16/19 Annotation/Comment:: Various therapeutic options discussed with the patient, who does not wish to have repeat CT of the chest with PE protocol at this time, which is very reasonable. Note previous ventricular thrombus with resolution of this thrombus by follow-up echocardiogram after previous Eliquis therapy. Secondary to returned D-dimer elevation a repeat echocardiogram will be perfor med in this facility on 10/19/2020 with close follow-up by regular provider and further cardiology consultation depending on her clinical course. (3) Peptic reflux disease SNOMED Code(s): 288339337 Code(s): K21.9 - GASTRO-ESOPHAGEAL REFLUX DISEASE WITHOUT ESOPHAGITIS Status: Chronic Priority: Medium Current Visit: Yes Annotation/Comment:: High-dose IV Pepcid and IV Protonix given as GI prophylaxis with improved symptoms prior to discharge. No evidence of acute GI bleed. Continue to observe closely by her regular provider. (4) Hypertension SNOMED Code(s): 58473251 Code(s): I10 - ESSENTIAL (PRIMARY) HYPERTENSION Status: Chronic Priority: Medium Current Visit: Yes Annotation/Comment:: Somewhat elevated blood pressures in the emergency room secondary to her discomfort and anxious affect. Continue to observe closely by her regular providers. No medication changes for now. Qualifiers: Hypertension type: essential hypertension Qualified Code(s): I10 - Essential (primary) hypertension (5) Tobacco abuse counseling SNOMED Code(s): 974404938, 959923062, 136922802 Code(s): Z71.6 - TOBACCO ABUSE COUNSELING Status: Chronic Priority: Medium Current Visit: Yes Annotation/Comment:: Tobacco cessation once again strongly encouraged with information provided. (6) COPD (chronic obstructive pulmonary disease) SNOMED Code(s): 24534956 Code(s): J44.9 - CHRONIC OBSTRUCTIVE PULMONARY DISEASE, UNSPECIFIED Status: Chronic Priority: Medium Current Visit: Yes Annotation/Comment:: COPD by previous chest x-ray. No current fever or bronchitic type symptoms. No current medical therapy. Tobacco cessation strongly encouraged as above with PFTs depending on her clinical course. Qualifiers: COPD type: emphysema Emphysema type: panlobular Qualified Code(s): J43.1 - Panlobular emphysema (7) Mixed anxiety depressive disorder SNOMED Code(s): 112325111 Code(s): F41.8 - OTHER SPECIFIED ANXIETY DISORDERS Status: Acute Priority: Medium Current Visit: Yes Annotation/Comment:: Stable by history, although moderate control based on today's exam. Continue to observe closely by her regular provider. - Problem List Review Problem List Initiated/Reviewed/Updated: Yes - My Orders Last 24 Hours: My Active Orders 10/14/20 00:38 Cardiac Monitoring [RC] . DIRECTED EKG Documentation Completion [RC] ASDIRECTED Oxygen Therapy, ED [RC] PRN Peripheral IV Care [RC] . DIRECTED Pulse Oximetry [RC] CONTINUOUS Up With Assistance [RC] PFP Vital Signs [RC] PFP Chest 1V Frontal [CR] Stat Sodium Chloride 0.9% [Saline Flush] 10 ml FLUSH ASDIRECTED PRN Obtain Past Medical Record [OM.PC] Urgent Peripheral IV Insertion Adult [OM.PC] Stat Resuscitation Status Stat 10/14/20 Breakfast Nothing per Oral Now Diet [DIET] - Assessment/Plan Last 24 Hours: My Active Orders 10/14/20 00:38 Cardiac Monitoring [RC] . DIRECTED EKG Documentation Completion [RC] ASDIRECTED Oxygen Therapy, ED [RC] PRN Peripheral IV Care [RC] . DIRECTED Pulse Oximetry [RC] CONTINUOUS Up With Assistance [RC] PFP Vital Signs [RC] PFP Chest 1V Frontal [CR] Stat Sodium Chloride 0.9% [Saline Flush] 10 ml FLUSH ASDIRECTED PRN Obtain Past Medical Record [OM.PC] Urgent Peripheral IV Insertion Adult [OM.PC] Stat Resuscitation Status Stat 10/14/20 Breakfast Nothing per Oral Now Diet [DIET] Assessment:: As above Plan: As above. Extensive precautions were given to the patient, who is in agreement with the treatment plan. See Patient Instructions for further treatment and plan.
[2020-10-14 00:58] LABS: PTT,PARTIAL THROMBOPLSTIN TIME 24.3 SEC (24.5-32.8)
[2020-10-14 01:08] LABS: CHLORIDE,CL 105 mmol/L (98-107); SODIUM,NA 141 mmol/L (136-145)
[2020-10-14 01:48] VITALS: BP 140/91; PULSE 66
== END 2020-10-14 02:30 | disposition home or self-care (01) ==
LOC: LL.ED 00:30
DX: R10.13 Epigastric pain (principal); I10 Essential (primary) hypertension; J43.1 Panlobular emphysema; F41.8 Other specified anxiety disorders; M41.9 Scoliosis, unspecified; I11.0 Hypertensive heart disease with heart failure; I50.9 Heart failure, unspecified; J44.9 Chronic obstructive pulmonary disease, unspecified; R79.1 Abnormal coagulation profile; Z88.6 Allergy status to analgesic agent; Z88.5 Allergy status to narcotic agent; Z88.2 Allergy status to sulfonamides; Z88.8 Allergy status to other drugs, medicaments and biological substances; Z79.899 Other long term (current) drug therapy; Z72.0 Tobacco use; Z71.6 Tobacco abuse counseling; Z91.018 Allergy to other foods
CPT/HCPCS: 36415; 71045; 80053; 82550; 82553; 83605; 83735; 83880; 84443; 84484; 84550; 85025; 85379; 85610; 85730; 93005; 93010; 96374; 99284; 99285-25; A9270-GY; J3490

== ENCOUNTER 2020-11-16 23:23 | Emergency (ER) | payer BC ==
[2020-11-16] MEDS ORDERED: Sodium Chloride 0.9% 10 ML Syringe FLUSH PRN (23:37)
[2020-11-17] MEDS: Meclizine 25 MG Tab PO ONE (00:06)
[2020-11-17 00:12] LABS: CHLORIDE,CL 106 mmol/L (98-107); SODIUM,NA 141 mmol/L (136-145)
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
[2020-11-17 02:42] VITALS: BP 146/95; PULSE 62
== END 2020-11-17 00:37 | disposition home or self-care (01) ==
LOC: LL.ED 23:23
DX: R42 Dizziness and giddiness (principal); I11.0 Hypertensive heart disease with heart failure; I50.9 Heart failure, unspecified; J44.9 Chronic obstructive pulmonary disease, unspecified; K21.9 Gastro-esophageal reflux disease without esophagitis; M19.90 Unspecified osteoarthritis, unspecified site; E66.9 Obesity, unspecified; Z88.6 Allergy status to analgesic agent; Z88.5 Allergy status to narcotic agent; Z91.018 Allergy to other foods; Z88.2 Allergy status to sulfonamides; Z88.8 Allergy status to other drugs, medicaments and biological substances; Z79.82 Long term (current) use of aspirin; Z79.899 Other long term (current) drug therapy
CPT/HCPCS: 36415; 70450; 80053; 85025; 93005; 99284-25; A9270-GY

== ENCOUNTER 2022-03-02 04:45 | Emergency (ER) | payer BC ==
[2022-03-02] MEDS ORDERED: Ondansetron 4 MG Tab.DIS PO ONE (05:19)
[2022-03-02] MEDS ORDERED: Prochlorperazine 5 MG Tab PO ONE (05:31)
[2022-03-02] MEDS ORDERED: Meclizine 25 MG Tab PO ONE (05:35)
[2022-03-02] MEDS ORDERED: Diazepam 5 MG Tab PO ONE (05:36)
[2022-03-02 06:26] LABS: CHLORIDE,CL 106 mmol/L (98-107); ESTIMATED GFR 81 mL/min (>=60); SODIUM,NA 140 mmol/L (136-145)
[2022-03-02 08:10] VITALS: BP 116/76; PULSE 60
== END 2022-03-02 09:57 | disposition home or self-care (01) ==
LOC: LL.ED 04:45
DX: R42 Dizziness and giddiness (principal); I11.0 Hypertensive heart disease with heart failure; I50.9 Heart failure, unspecified; J44.9 Chronic obstructive pulmonary disease, unspecified; E66.9 Obesity, unspecified; Z68.30 Body mass index [BMI] 30.0-30.9, adult; Z88.5 Allergy status to narcotic agent; Z91.018 Allergy to other foods; Z88.2 Allergy status to sulfonamides; Z88.8 Allergy status to other drugs, medicaments and biological substances; Z79.82 Long term (current) use of aspirin; Z79.899 Other long term (current) drug therapy
CPT/HCPCS: 36415; 80053; 83735; 85025; 99284; A9270-GY; Q0164

== ENCOUNTER 2024-06-27 08:31 | Emergency (ER) | payer BC, MEDICAID ==
[2024-06-27] MEDS: Acetaminophen 500 MG Tab PO ONE (08:48)
[2024-06-27] MEDS: traMADol 50 MG Tab PO ONE (08:49)
[2024-06-27 09:18] LABS: APPEARANCE,URINE TURBID; BILIRUBIN,URINE NEGATIVE (NEGATIVE); COLOR,URINE YELLOW; GLUCOSE,URINE NEGATIVE (NEGATIVE); KETONES,URINE NEGATIVE (NEGATIVE); LEUKOCYTE ESTERASE,URINE MODERATE (NEGATIVE); NITRITE,URINE POSITIVE (NEGATIVE); OCCULT BLOOD,URINE TRACE-INTACT (NEGATIVE); PH,URINE 5.5 (5.0-9.0); PROTEIN,URINE 30 mg/dL (NEGATIVE); UROBILINOGEN,URINE 0.2 E.U./dL (0.2-1.0)
[2024-06-27 09:27] LABS: BACTERIA,URINE MANY /HPF (NONE TO FEW); RBC,URINE 0-5 /HPF; WBC,URINE 30-40 /HPF
[2024-06-27 10:06] VITALS: BP 143/97; PULSE 84
== END 2024-06-27 09:55 | disposition home or self-care (01) ==
LOC: LL.ED 08:31
DX: S63.502A Unspecified sprain of left wrist, initial encounter (principal); S20.211A Contusion of right front wall of thorax, initial encounter; N30.90 Cystitis, unspecified without hematuria; I11.0 Hypertensive heart disease with heart failure; I50.9 Heart failure, unspecified; J44.9 Chronic obstructive pulmonary disease, unspecified; M19.90 Unspecified osteoarthritis, unspecified site; E66.9 Obesity, unspecified; Z68.30 Body mass index [BMI] 30.0-30.9, adult; Z90.49 Acquired absence of other specified parts of digestive tract; Z90.710 Acquired absence of both cervix and uterus; Z88.2 Allergy status to sulfonamides; Z88.5 Allergy status to narcotic agent; Z88.8 Allergy status to other drugs, medicaments and biological substances; Z91.018 Allergy to other foods; Z79.82 Long term (current) use of aspirin; Z79.899 Other long term (current) drug therapy; W19.XXXA Unspecified fall, initial encounter; Y92.000 Kitchen of unspecified non-institutional (private) residence as the place of occurrence of the external cause
CPT/HCPCS: 71111; 73110-LT; 81001; 87086; 87088; 87186; 99283; A9270-GY